=== PATIENT | female | born 1965 | race African-American/Black ===

== ENCOUNTER 2019-04-02 19:35 | Emergency (ER) | payer MEDICARE, MEDICAID ==
[~2019-04-02] VITALS: Ht 170.2 cm; Wt 77.0 kg
[~2019-04-02 19:35] MED LIST: AMLO1TAB14 PO; CLOP75TA4 PO; HYDR-4001 PO; OMEP20CA4 PO
[2019-04-02] MEDS ORDERED: CLONIDINE 0.2MG TABLET PO ONE (21:15)
[2019-04-02] MEDS ORDERED: HYDROCODONE/ACETAMINOPHEN 5/325MG TABLET PO ONE ×2 (21:15→22:30)
[2019-04-02] MEDS ORDERED: CLONIDINE 0.1MG TABLET PO ONE (22:45)
[2019-04-02] MEDS ORDERED: AMLODIPINE 5MG TABLET PO ONE (22:45)
[2019-04-03 02:03] VITALS: BP 155/74
== END 2019-04-03 02:17 | disposition home or self-care (01) ==
LOC: ER 19:35
DX: M54.89 Other dorsalgia (principal); W01.0XXA Fall on same level from slipping, tripping and stumbling without subsequent striking against object, initial encounter; Y93.89 Activity, other specified; Y92.013 Bedroom of single-family (private) house as the place of occurrence of the external cause; I10 Essential (primary) hypertension; I69.398 Other sequelae of cerebral infarction; I69.351 Hemiplegia and hemiparesis following cerebral infarction affecting right dominant side; H54.7 Unspecified visual loss
CPT/HCPCS: 72100; 99284